=== PATIENT | female | born 1980 | race Two or more races ===

== ENCOUNTER → 2020-03-08 | Outpatient (CLI) | payer OTHER ==
[~2020-03-08] MED LIST: FLUT100M7
== END | disposition home or self-care (01) ==
LOC: LAB 12:38
PROVIDERS: ATTEND Physician Assistant
DX: Z20.828 Contact with and (suspected) exposure to other viral communicable diseases (principal)
CPT/HCPCS: C9803; U0003

== ENCOUNTER 2020-05-02 08:38 | Emergency (ER) | payer SELFPAY ==
[~2020-05-02] VITALS: Ht 167.6 cm; Wt 83.9 kg
[2020-05-02 09:22] LABS: Basophils # (auto) 0 10 ^3/uL (0-0.2); Basophils % (auto) 1.1 % (0.0-2.0); Eosinophils # (auto) 0 10 ^3/uL (0-0.8); Eosinophils % (auto) 1.6 % (0.0-7.0); Hematocrit 38.9 % (36.0-46.0); Lymphocytes % (auto) 34.5 % (10.0-50.0); Mean Corpuscular Hemoglobin 30.6 pg (28.0-32.0); Mean Corpuscular Hgb Conc. 33.4 g/dL (32.0-36.0); Mean Corpuscular Volume 91.7 fL (80.0-100.0); Monocytes # (auto) 0.4 10 ^3/uL (0-1.3); Neutrophils # (auto) 1.5 10 ^3/uL (1.6-8.6); Neutrophils % (auto) 49.8 % (37.0-80.0); Nucleated Red Blood Cells % 0.1 %; Platelet Count (auto) 270 10^3/uL (140-450); Red Blood Cells 4.25 10^6/uL (4.0-5.20); Red Cell Distribution Width 13.2 % (11.8-14.3)
[2020-05-02 10:19] LABS: Anion Gap 6 (5-15); Blood Urea Nitrogen 14 mg/dL (7-18); Calcium 8.4 mg/dL (8.5-10.1); Carbon Dioxide 23 mmol/L (21-32); Chloride 107 mmol/L (98-107); Glucose 96 mg/dL (74-106); Potassium 3.9 mmol/L (3.5-5.1); Sodium 136 mmol/L (136-145)
[2020-05-02 10:26] LABS: Alanine Aminotransferase 109 U/L (13-56); Alkaline Phosphatase 75 U/L (45-117); Aspartate Aminotransferase 72 U/L (15-37); BUN/Creatinine Ratio 21.5; Bilirubin, Total 0.3 mg/dL (0.2-1.0); CRP High Sensitivity 0.42 mg/dL (< 0.3); GFR African American 130 mL/min; GFR Non-African American 107 mL/min; Total Protein 7.9 g/dL (6.4-8.2)
[2020-05-02 12:09] VITALS: BP 146/86
== END 2020-05-02 12:13 | disposition home or self-care (01) ==
LOC: ER 08:38
DX: U07.1 COVID-19 (principal); R55 Syncope and collapse; I10 Essential (primary) hypertension; Z90.49 Acquired absence of other specified parts of digestive tract; Z86.73 Personal history of transient ischemic attack (TIA), and cerebral infarction without residual deficits
CPT/HCPCS: 36415; 71045; 80053; 81025; 82728; 84484; 85025; 86141; 87426; 87804; 93005

== ENCOUNTER 2022-04-06 14:18 | Emergency (ER) | payer BC, OTHER ==
[~2022-04-06] VITALS: Ht 165.1 cm; Wt 86.5 kg
[2022-04-06 14:23] VITALS: BP 174/72
[2022-04-06] MEDS ORDERED: HYDR-4902 PO (15:58)
[2022-04-06] MEDS ORDERED: IBUPROFEN 800 MG TAB PO ONE (16:15)
== END 2022-04-06 16:26 | disposition home or self-care (01) ==
LOC: ER 14:18
DX: S83.91XA Sprain of unspecified site of right knee, initial encounter (principal); I10 Essential (primary) hypertension; J45.909 Unspecified asthma, uncomplicated; Z86.73 Personal history of transient ischemic attack (TIA), and cerebral infarction without residual deficits; Z90.49 Acquired absence of other specified parts of digestive tract; Z98.51 Tubal ligation status; Z90.89 Acquired absence of other organs; Z88.6 Allergy status to analgesic agent; W19.XXXA Unspecified fall, initial encounter; Y93.89 Activity, other specified; Y92.89 Other specified places as the place of occurrence of the external cause; Y99.8 Other external cause status
CPT/HCPCS: 29505; 73562; 99283; J7030

== ENCOUNTER → 2023-01-09 | Outpatient (CLI) | payer BC ==
[~2023-01-09] MED LIST changes: +HYDR-4902 PO; +LOSA50TA46 PO
[2023-01-09 08:23] LABS: Basophils # (auto) 0 10 ^3/uL (0-0.2); Basophils % (auto) 0.5 % (0.0-2.0); Eosinophils # (auto) 0.1 10 ^3/uL (0-0.8); Eosinophils % (auto) 1.6 % (0.0-7.0); Hematocrit 38.1 % (36.0-46.0); Hemoglobin 12.8 g/dL (12.2-16.2); Lymphocytes # (auto) 2.2 10 ^3/uL (0.4-5.4); Lymphocytes % (auto) 44.5 % (10.0-50.0); Mean Corpuscular Hemoglobin 31.1 pg (28.0-32.0); Mean Corpuscular Hgb Conc. 33.7 g/dL (32.0-36.0); Mean Corpuscular Volume 92.3 fL (80.0-100.0); Monocytes # (auto) 0.3 10 ^3/uL (0-1.3); Monocytes % (auto) 6.1 % (0.0-12.0); Neutrophils # (auto) 2.3 10 ^3/uL (1.6-8.6); Neutrophils % (auto) 47.3 % (37.0-80.0); Nucleated Red Blood Cells % 0.1 %; Red Blood Cells 4.13 10^6/uL (4.0-5.20); Red Cell Distribution Width 13.1 % (11.8-14.3); White Blood Cell 4.8 10^3/uL (4.4-10.8)
[2023-01-09 08:35] LABS: Urine Color Yellow (Yellow)
[2023-01-09 08:36] LABS: Urine Blood Negative /uL (Negative); Urine Clarity Clear (Clear); Urine Protein, UAD Negative (Negative); Urine Specific Gravity 1.027 (1.001-1.035); Urine Urobilinogen Normal (Negative); Urine WBC 2 /hpf (0 - 5); Urine pH 5.5 (5.0-8.0)
[2023-01-09 08:37] LABS: Urine Bacteria FEW /hpf (None Seen)
[2023-01-09 08:38] LABS: Urine Mucus FEW (None Seen)
[2023-01-09 08:40] LABS: INR 0.95 (0.9-1.15)
[2023-01-09 08:52] LABS: Alanine Aminotransferase 19 U/L (7-40); Albumin 4.7 g/dL (3.2-4.8); Alkaline Phosphatase 72 U/L (46-116); Anion Gap 7.8 (5-15); Aspartate Aminotransferase 11 U/L (13-40); BUN/Creatinine Ratio 20.5 (10.0-20.0); Blood Urea Nitrogen 15 mg/dL (9-23); Calcium 9.4 mg/dL (8.5-10.1); Carbon Dioxide 23.2 mmol/L (20-30); Chloride 108 mmol/L (98-107); Glucose 109 mg/dL (74-106); LDL Cholesterol 134 mg/dL (< 100); Potassium 3.8 mmol/L (3.5-5.1); Sodium 139 mmol/L (136-145); Triglycerides 273 mg/dL (< 150)
[2023-01-09 08:53] LABS: Bilirubin, Total 0.3 mg/dL (0.2-1.0); Cholesterol 217 mg/dL (< 200); HDL Cholesterol 46 mg/dL (40-59); Total Protein 7.5 g/dL (5.7-8.2)
[2023-01-09 09:21] LABS: Erythrocyte Sedimentation Rate 22 mm/hr (0-20)
== END | disposition home or self-care (01) ==
LOC: LAB 07:57
PROVIDERS: ATTEND Internal Medicine
DX: I10 Essential (primary) hypertension (principal); J45.909 Unspecified asthma, uncomplicated; K76.0 Fatty (change of) liver, not elsewhere classified; Z86.16 Personal history of COVID-19
CPT/HCPCS: 36415; 80053; 80061; 81001; 82088; 82306; 82384; 84244; 84439; 84443; 85025; 85610; 85652

== ENCOUNTER 2023-01-15 09:04 | Day surgery (SDC) | payer OTHER ==
[2023-01-09 08:24] LABS: Urine Bacteria FEW /hpf (None Seen); Urine Blood Negative /uL (Negative); Urine Clarity Clear (Clear); Urine Color Yellow (Yellow); Urine Mucus FEW (None Seen); Urine Protein, UAD Negative (Negative); Urine Specific Gravity 1.027 (1.001-1.035); Urine Urobilinogen Normal (Negative); Urine WBC 2 /hpf (0 - 5); Urine pH 5.5 (5.0-8.0)
[2023-01-09 08:26] LABS: White Blood Cell 4.8 10^3/uL (4.4-10.8)
[2023-01-09 08:27] LABS: Basophils % (auto) 0.5 % (0.0-2.0); Eosinophils # (auto) 0.1 10 ^3/uL (0-0.8); Eosinophils % (auto) 1.6 % (0.0-7.0); Lymphocytes # (auto) 2.2 10 ^3/uL (0.4-5.4); Lymphocytes % (auto) 44.5 % (10.0-50.0); Monocytes # (auto) 0.3 10 ^3/uL (0-1.3); Monocytes % (auto) 6.1 % (0.0-12.0); Neutrophils # (auto) 2.3 10 ^3/uL (1.6-8.6); Neutrophils % (auto) 47.3 % (37.0-80.0); Nucleated Red Blood Cells % 0.1 %
[2023-01-09 08:28] LABS: Basophils # (auto) 0 10 ^3/uL (0-0.2); Hematocrit 38.1 % (36.0-46.0); Hemoglobin 12.8 g/dL (12.2-16.2); Mean Corpuscular Hemoglobin 31.1 pg (28.0-32.0); Mean Corpuscular Hgb Conc. 33.7 g/dL (32.0-36.0); Mean Corpuscular Volume 92.3 fL (80.0-100.0); Red Blood Cells 4.13 10^6/uL (4.0-5.20)
[2023-01-09 08:29] LABS: Red Cell Distribution Width 13.1 % (11.8-14.3)
[2023-01-09 08:56] LABS: Partial Thromboplastin Time 29.1 SEC (24.5-34.5)
[2023-01-09 08:57] LABS: INR 0.95 (0.9-1.15)
[2023-01-09 09:39] LABS: Alanine Aminotransferase 20 U/L (7-40); Albumin 4.7 g/dL (3.2-4.8); Alkaline Phosphatase 72 U/L (46-116); Anion Gap 8.7 (5-15); Aspartate Aminotransferase 10 U/L (13-40); BUN/Creatinine Ratio 20.5 (10.0-20.0); Bilirubin, Total 0.3 mg/dL (0.2-1.0); Blood Urea Nitrogen 15 mg/dL (9-23); Calcium 9.4 mg/dL (8.5-10.1); Carbon Dioxide 22.3 mmol/L (20-30); Chloride 108 mmol/L (98-107); Glucose 111 mg/dL (74-106); Potassium 3.8 mmol/L (3.5-5.1); Sodium 139 mmol/L (136-145); Total Protein 7.5 g/dL (5.7-8.2)
[~2023-01-15] VITALS: Ht 167.6 cm; Wt 86.2 kg
[~2023-01-15 09:04] MED LIST changes: +HYDROmorphone HCL 2 MG/ML VL/or syr IV PRN; +METOCLOPRAMIDE HCL 5MG/ml INJ 2ml VIAL IV PRN; +MORPHINE SULFATE INJ 2 MG/ml SYRG IV PRN
[2023-01-15] MEDS ORDERED: ceFAZolin 1GM/50ML 100 ML IV ONE (09:28)
[2023-01-15] MEDS ORDERED: NEOSTIGMINE 1 MG/ML INJ (10mg/10ML VIAL) ONE (09:57)
[2023-01-15] MEDS ORDERED: HYDROmorphone HCL 2 MG/ML VL/or syr ONE ×2 (09:57→13:43)
[2023-01-15] MEDS ORDERED: MIDAZOLAM HCL 2MG/2ML 2ml VIAL (1mg/ml) ONE (09:57)
[2023-01-15] MEDS ORDERED: DexAMETHasone SOD PHOS 10MG/1ML VIAL INJ ONE (09:57)
[2023-01-15] MEDS ORDERED: fentaNYL CITRATE 100 MCG/2 ML VL ONE ×3 (09:57→11:29)
[2023-01-15] MEDS ORDERED: ROCURONIUM 10MG/ML 10ML VIAL IV ONE (09:58)
[2023-01-15] MEDS ORDERED: ONDANSETRON HCL 4 MG/2 ML VIAL ONE (09:58)
[2023-01-15] MEDS ORDERED: SODIUM CHLORIDE LOCK 20 ML ONE (09:58)
[2023-01-15] MEDS ORDERED: GLYCOPYRROLATE 0.2 MG/ML 1ML VIAL ONE (09:58)
[2023-01-15] MEDS ORDERED: MEPERIDINE HCL (50 MG/ML) 1 ML VIAL ONE (11:29)
[2023-01-15] MEDS ORDERED: SUCCINYLCHOLINE CHLORIDE 20 MG/ML 10ML VIAL IV ONE (11:54)
[2023-01-15] MEDS ORDERED: BUPIVACAINE HCL 50 ML ONE (13:06)
[2023-01-15] MEDS ORDERED: HYDROmorphone HCL 2 MG/ML VL/or syr IV PRN (13:45)
[2023-01-15] MEDS ORDERED: MEPERIDINE HCL (25 MG/ML) 1ML VIAL IV ONE (13:45)
[2023-01-15 14:57] VITALS: BP 111/64; PULSE 80; RESP 11; TEMP 97.1; O2SAT 96
== END 2023-01-15 15:00 | disposition home or self-care (01) ==
LOC: SUR 09:04
PROVIDERS: ATTEND Orthopaedic Surgery Sports Medicine
DX: S83.211A Bucket-handle tear of medial meniscus, current injury, right knee, initial encounter (principal); M94.261 Chondromalacia, right knee; M24.661 Ankylosis, right knee; X58.XXXA Exposure to other specified factors, initial encounter; Y93.89 Activity, other specified; Y92.89 Other specified places as the place of occurrence of the external cause; Y99.8 Other external cause status
CPT/HCPCS: 29881; 36415; 80053; 81001; 84702; 85025; 85610; 85730; J0330; J0690; J1100; J1170; J2175; J2250; J2405; J2765; J3010; J3490

== ENCOUNTER 2024-09-18 00:43 | Emergency (ER) | payer BC, OTHER ==
[~2024-09-18] VITALS: Ht 167.6 cm; Wt 92.4 kg
[~2024-09-18 00:43] MED LIST changes: -HYDROmorphone HCL 2 MG/ML VL/or syr IV PRN; +LOSA-534 PO; -LOSA50TA46 PO; -METOCLOPRAMIDE HCL 5MG/ml INJ 2ml VIAL IV PRN; -MORPHINE SULFATE INJ 2 MG/ml SYRG IV PRN
--- NOTE | 2024-09-18 01:19 | ED.PDOC ---
HPI Allergic reaction HPI Comments 43-year-old female came to ER due to allergic reaction. Patient was apparently well until 5:00 p.m. today, when she started developing generalized, pruritic, maculopapular rashes, later associated throat itching. She denies any fever, shortness a breath or wheezing. Patient's self-medicated with Crystal and Zyrt ec however offered no relief. Patient unsure of what caused the allergic reaction patient denies serious allergic reaction in the past. No known allergies. Chief Complaint: Allergic Reaction Time Seen by MD: 01:17 Primary Care Provider: CURRY Reviewed Notes: Nurses Notes Allergies: Coded Allergies: Butorphanol (Verified Allergy, Unknown, 04/06/22) Tramadol (Verified Allergy, Unknown, 04/06/22) Home Meds Active Scripts Epinephrine (Anaphylaxis) (Auvi-Q) 0.1 Mg/0.1 Ml Inj, 0.3 MG IJ O PRN for 1 Day, #2 INJ Prov:PUSHPA BARNETT MD 09/18/24 Prednisone (Prednisone) 20 Mg Tab, 20 MG PO DAILY for 5 Days, #5 MG Prov:PUSHPA BARNETT MD 09/18/24 Diphenhydramine Hcl (Benadryl Allergy) 25 Mg Tab, 25 MG PO TIDPRN PRN for 5 Days, #15 TAB Prov:PUSHPA BARNETT MD 09/18/24 Epinephrine (Anaphylaxis) (Auvi-Q) 0.1 Mg/0.1 Ml Inj, 0.3 MG IJ O PRN for 1 Day, #2 INJ Prov:PUSHPA BARNETT MD 09/18/24 Diphenhydramine Hcl (Benadryl Allergy) 25 Mg Tab, 25 MG PO TIDPRN PRN for 5 Days, #15 TAB Prov:PUSHPA BARNETT MD 09/18/24 Prednisone (Prednisone) 20 Mg Tab, 20 MG PO DAILY for 5 Days, #5 MG Prov:PUSHPA BARNETT MD 09/18/24 Hydrocodone-Acetaminophen (Hydrocodone Bitartrate/AC 5-325 mg) 1 Tab Tab, 1 TAB PO Q6HP PRN for 7 Days, #28 TAB Prov:GUILLERMO TAVAREZ MD 04/06/22 Reported Medications Losartan Potassium (Losartan Potassium) 50 Mg Tab, 50 MG PO DAILY, TAB 01/10/23 Fluticasone-Salmeterol (Advair Diskus) 100/50 Mis 07/19/12 Information Source: Patient Mode of Arrival: Ambulatory Severity: Moderate Rash: Moderate SOB: None Difficulty swallowing: Moderate Pruritus: Moderate Timing: Hours Duration: Since onset Prehospital treatment: Treatment Location: Generalized Exposed to: Unknown Developed: Difficult Swallowing, Generalized erythema, Pruritus, Rash, Throat Swelliing Associated Sign and Symptoms: None Review of Systems REVIEW OF SYSTEMS: No fever, no chills, or fatigue HEENT: (+) sore throat, no earache, no congestion, no neck pain. Cardiac: No chest pain. No palpitations. Lungs: No shortness of breath, no cough. GI: No nausea, no vomiting, no diarrhea, no constipation, no abdominal pain : No dysuria, frequency, or urgency. No hematuria. Musculoskeletal: No joint pain , no joint swelling, no extremity edema. Skin: (+) rash, (+) itching. Neuro: No headache, no dizziness, no weakness Vital Signs Vital Signs Date Time Temp Pulse Resp B/P (MAP) Pulse Ox O2 Delivery O2 Flow Rate FiO2 09/18/24 02:00 83 15 128/68 (88) 98 09/18/24 01:36 Room Air* 0 21 09/18/24 01:33 97.8 97.8 Physical Exam General: Awake, alert and oriented. No acute distress. Skin: Skin in warm, dry and intact. Appropriate color for ethnicity. Nailbeds pink with no cyanosis. HEENT: The head is normocephalic and atraumatic. Conjunctivae are clear without exudates or hemorrhage. Sclera is non-icteric. EOM are intact. No signs of nysta gmus. Eyelids are normal in appearance without swelling or lesions. Oral mucosa is pink and moist Neck: The neck is supple with normal range of motion. No JVD. Cardiac: Heart rate and rhythm are normal. No murmurs, gallops, or rubs are auscultated. Respiratory: No signs of respiratory distress. Lung sounds are clear in all lobes bilaterally without rales, rhonchi, or wheezes. No stridor. No drooling. Abdominal: Abdomen is soft, non-tender without distention. Bowel sounds are present and normoactive in all four quadrants. Extremities: Upper and lower extremities are atraumatic in appearance without deformity or edema. Skin: Generalized Hive-like rash on upper extremities, chest, abdominal wall. Neurological: The patient is awake, alert and oriented to person, place, and time with normal speech. Speech is clear. There is no facial asymmetry. Psychiatric: Appropriate mood and affect. Good judgement and insight Past Medical History PAST MEDICAL HISTORY: Asthma, HTN, TIA Surgical History: Appendectomy, BTL, Cholecystectomy, TRAFFIC CLERK History: No Pertinent TRAFFIC CLERK History Family History Family History: Family hx of HTN Social History Smoker: Non-Smoker Alcohol: Occasionally Drugs: Denies Drug Use Lives In: Home Was a procedure done? Was a procedure done?: No Differential diagnosis (all) Differential Diagnosis: Anaphylaxis, Contact Dermatitis, Urticaria X-Ray, Labs, Meds, VS Vital Signs Date Time Temp Pulse Resp B/P (MAP) Pulse Ox O2 Delivery O2 Flow Rate FiO2 09/18/24 02:00 83 15 128/68 (88) 98 09/18/24 01:36 107 16 98 Room Air* 0 21 09/18/24 01:33 97.8 107 16 133/62 (85) 98 97.8 09/18/24 00:55 98.4 107 14 164/98 (120) 97 98.4 Current Medications Medications (Trade) Dose Ordered Sig/Kelly Route Start Time Stop Time Status Last Admin Epinephrine HCl 0.3 mg STAT STAT IM 09/18/24 00:57 09/18/24 00:58 DC 09/18/24 01:23 Dexamethasone Sodium Phosphate (Decadron Injection) 10 mg ONCE STAT IM 09/18/24 00:57 09/18/24 00:58 DC 09/18/24 01:23 Time of 1ST Reevaluation: 01:15 Reevaluation 1ST: Unchanged Patient Education/Counseling: Diagnosis, Treatment, Need For Follow Up Family Education/Counseling: No Family Present Departure 1 Departure Time of Disposition: 03:19 Impression: Primary Impression: Allergic reaction Disposition: 01 HOME / SELF CARE / HOMELESS Condition: Stable Additional Instructions: ED DISCHARGE INSTRUCTIONS Instructions: Please read all instructions provided in this packet carefully. Although you have been discharged from the Emergency Department, this does not mean that you have a "clean bill of health". No definitive diagnosis for your symptoms has been made today. It is possible that you are in the process of developing a serious illness. This is why you must return to the ED without fail if any new or worsening symptoms (especially if your symptoms include chest pain, trouble breathing, abdominal pain, fever, headache, confusion, trouble seeing, or trouble walking) It is also very important that you see a primary care doctor within the next 1-3 days to follow up. If you are unable to get an appointment, return to the ED for re-evaluation. Allergic Reaction: Care Instructions An allergic reaction is an excessive response from your immune system to a medicine, chemical, food, insect bite, or other substance. A reaction can range from mild to life-threatening. Some people have a mild rash, hives, and itching or stomach cramps. In severe reactions, swelling of your tongue and throat can close up your airway so that you cannot breathe. Follow-up care is a garza part of your treatment and safety. Be sure to make and go to all appointments, and call your doctor if you are having problems. It's also a good idea to know your test results and keep a list of the medicines you take. How can you care for yourself at home? If you know what caused your allergic reaction, be sure to avoid it. Your allergy may become more severe each time you have a reaction. Take an dheg-sxg-gwrkkka antihistamine, such as cetirizine (Zyrtec) or loratadine (Claritin), to treat mild symptoms. Read and follow directions on the label. Some antihistamines can make you feel sleepy. Do not give antihistamines to a child unless you have checked with your doctor first. Mild symptoms include sneezing or an itchy or runny nose; an itchy mouth; a few hives or mild itching; and mild nausea or stomach discomfort. Do not scratch hives or a rash. Put a cold, moist towel on them or take cool bat hs to relieve itching. Put ice packs on hives, swelling, or insect stings for 10 to 15 minutes at a time. Put a thin cloth between the ice pack and your skin. Do not take hot baths or showers. They will make the itching worse. Your doctor may prescribe an epinephrine medicine, such as an epinephrine shot or nasal spray, to carry with you in case you have a severe reaction. Learn how to give yourself the medicine and keep it with you at all times. Make sure it is not . Go to the emergency room every time you have a severe reaction, even if you have used your epinephrine medicine and are feeling better. Symptoms can come back a fter using the medicine. Wear medical alert jewelry that lists your allergies. You can buy this at most drugstores. When should you call for help? Use an epinephrine medicine, such as an epinephrine shot or nasal spray, if: You think you are having a severe allergic reaction. You have symptoms in more than one body area, such as mild nausea and an itchy mouth. After giving an epinephrine medicine, call 911, even if you feel better. Call 911 anytime you think you may need emergency care. For example, call if: You have symptoms of a severe allergic reaction. These may include: Sudden raised, red areas (hives) all over your body. Swelling of the throat, mouth, lips, or tongue. Trouble breathing. Passing out (losing consciousness). Or you may feel very lightheaded or suddenly feel weak, confused, or restless. Severe belly pain, nausea, vomiting, or diarrhea. Call your doctor now or seek immediate medical care if: You have symptoms of an allergic reaction, such as: A rash or hives (raised, red areas on the skin). Itching. Swelling. Mild belly pain or nausea. Watch closely for changes in your health, and be sure to contact your doctor if: You do not get better as expected. Credits for Allergic Reaction: Care Instructions Current as of: March 06, 2024 Author: [employer] Staff Clinical Review Board All [employer] education is reviewed by a team that includes ph ysicians, nurses, advanced practitioners, registered dieticians, and other healthcare professionals. e-Prescriptions Epinephrine (Anaphylaxis) (Auvi-Q) 0.1 Mg/0.1 Ml Inj 0.3 MG IJ O PRN for 1 Day, #2 INJ Prov: PUSHPA BARNETT MD 09/18/24 Prednisone (Prednisone) 20 Mg Tab 20 MG PO DAILY for 5 Days, #5 MG Prov: PUSHPA BARNETT MD 09/18/24 Diphenhydramine Hcl (Benadryl Allergy) 25 Mg Tab 25 MG PO TIDPRN PRN for 5 Days, #15 TAB Prov: PUSHPA BARNETT MD 09/18/24 Epinephrine (Anaphylaxis) (Auvi-Q) 0.1 Mg/0.1 Ml Inj 0.3 MG IJ O PRN for 1 Day, #2 INJ Prov: PUSHPA BARNETT MD 09/18/24 Diphenhydramine Hcl (Benadryl Allergy) 25 Mg Tab 25 MG PO TIDPRN PRN for 5 Days, #15 TAB Prov: PUSHPA BARNETT MD 09/18/24 Prednisone (Prednisone) 20 Mg Tab 20 MG PO DAILY for 5 Days, #5 MG Prov: PUSHPA BARNETT MD 09/18/24 Comments 43-year-old female with allergic reaction to unknown allergen. Patient was not hypoxic or with any respiratory distress during the ED observation. Patient administered steroid, epinephrine in the emergency department with significant relief of her symptoms. Patient felt stable for discharge home. Patient prescribed steroid, antihistamine, EpiPen for home. Advised follow up with primary care provider for further evaluation. Advised to return to the ED for any new, worsening or concerning symptoms - Critical Care Note Critical Care Time?: No Stability Stability form required: No Heart Score Heart Score: Heart Score Response (Comments) Value History N/A 0 EKG N/A 0 Age N/A 0 Risk Factors N/A 0 Troponin N/A 0 Total 0 I personally scribed for PUSHPA BARNETT MD ([email or web address]) on 09/18/24 at 01:19. Electronically submitted by Shashi Escalona ([email or web address]). PUSHPA BARNETT MD September 18, 2024 01:19
[2024-09-18] MEDS: EPINEPHrine HCL 1 MG/1 ML AMP IM STA (01:23)
[2024-09-18] MEDS: DexAMETHasone SOD PHOS 10MG/1ML VIAL INJ IM STA (01:23)
[2024-09-18 01:33] VITALS: TEMP 97.8
[2024-09-18 01:36] VITALS: PULSE 107; RESP 16; O2SAT 98
[2024-09-18 02:00] VITALS: BP 128/68; PULSE 83; RESP 15; O2SAT 98
[2024-09-18] MEDS ORDERED: DIPH25TA54 PO (03:22)
[2024-09-18] MEDS ORDERED: EPIN0.1I11 IJ (03:22)
[2024-09-18] MEDS ORDERED: PRED20TA2 PO (03:22)
== END 2024-09-18 03:37 | disposition home or self-care (01) ==
LOC: EEVIPCON 00:43 → ER 00:43
DX: T78.40XA Allergy, unspecified, initial encounter (principal); J45.909 Unspecified asthma, uncomplicated; I10 Essential (primary) hypertension; Z86.73 Personal history of transient ischemic attack (TIA), and cerebral infarction without residual deficits; Z90.49 Acquired absence of other specified parts of digestive tract; Z98.51 Tubal ligation status; Z88.5 Allergy status to narcotic agent; Z88.8 Allergy status to other drugs, medicaments and biological substances; Z79.899 Other long term (current) drug therapy; X58.XXXA Exposure to other specified factors, initial encounter
CPT/HCPCS: 96372; 99284; J0171; J1100